=== PATIENT | male | born 1965 | race African-American/Black ===

== ENCOUNTER 2024-10-01 20:56 | Observation (INO) ==
--- NOTE | 2024-10-01 21:08 | DR.EXTPAIN ---
HPI Time seen Time Seen by Provider: 10/01/24 21:08 HPI Comment HPI Comment: Patient is poor historian but it sounds like he has had some left- sided upper extremity weakness. Per patient this started at 2 PM with a headache and then around 6 in the afternoon he started having weakness on the left upper extremity and had a fall. PMH PMH Past Medical History: PUD Past Surgical History: No Family History Family Medical History: Diabetes Mellitus Social History Do you use any recreational Drugs:: No ROS Review of Systems Constitutional: See HPI and Weakness Eyes: No Symptoms Reported ENTM: No Symptoms Reported Respiratoy: No Symptoms Reported Cardiovascular: No Symptoms Reported Gastrointestinal/Abdominal: No Symptoms Reported Genitourinary: No Symptoms Reported Neurological: See HPI Musculoskeletal: No Symptoms Reported Integumentary: No Symptoms Reported Hematologic/Lymphatic: No Symptoms Reported Endocrine: No Symptoms Reported Psychiatric: No Symptoms Reported All Other Systems: Reviewed and Negative PE Vital Signs Vitals: Vital Signs Temperature 98.0 F Pulse Rate [Left] 105 Pulse Rate [Left] 115 Pulse Rate 92 Pulse Rate 100 Pulse Rate 98 Pulse Rate 99 Pulse Rate 97 Pulse Rate 97 Pulse Rate 95 Pulse Rate 91 Pulse Rate 94 Pulse Rate 92 Pulse Rate 111 Pulse Rate 97 Respiratory Rate 19 Respiratory Rate 27 Respiratory Rate 26 Respiratory Rate 27 Respiratory Rate 22 Respiratory Rate 24 Respiratory Rate 24 Respiratory Rate 30 Respiratory Rate 26 Respiratory Rate 23 Blood Pressure [Right Arm] 201/97 Blood Pressure [Right Arm] 207/118 Blood Pressure 183/85 Blood Pressure 198/107 Blood Pressure 198/107 Blood Pressure 198/94 Blood Pressure 181/96 Blood Pressure 205/123 O2 Sat by Pulse Oximetry 99 O2 Sat by Pulse Oximetry 95 O2 Sat by Pulse Oximetry 96 O2 Sat by Pulse Oximetry 96 O2 Sat by Pulse Oximetry 97 O2 Sat by Pulse Oximetry 95 O2 Sat by Pulse Oximetry 97 O2 Sat by Pulse Oximetry 95 O2 Sat by Pulse Oximetry 96 O2 Sat by Pulse Oximetry 115 General Limitations: No Limitations General Appearance: Alert Head Head Exam: Normal Inspection Eyes Eye exam: Normal Appearance ENT ENT Exam: Normal Exam Neck Neck Exam: Normal Inspection Chest Chest Inspection: Normal Inspection Respiratory Respiratory Exam: Normal Lung Sounds Bilat Cardiovascular Cardiovascular Exam: Regular Rate and Normal Rhythm Abdominal Exam Abdominal Exam: Normal Inspection, Normal Bowel Sounds and Soft Extremities Extremities Exam: Normal Inspection Back Back Exam: Normal Inspection Neurological Neurological Exam: Alert, Oriented X3 and Motor Sensory Deficit Psychiatric Psychiatric Exam: Normal Affect and Normal Mood Skin Skin Exam: Warm, Dry, Intact and Normal Color COURSE Consultation Called: 21:25 Consultation Comments: At 21:25 - Spoke with Neuro Telemed service, Dr. Patrick, who had concerns for R temp area with stroke vs mass. Pt was having Simple Partial Seizures. He recommended 2 mg of Ativan and Keppra 2K to load with intention of 1 k maintenance bid. He also recommended MRI with and without contrast in the am, when available. BP recommended to keep between 160-180 Systolic. 23:35 - Discussed case with Dr. Menendez. He is agreeable to admit patient. [facility] Labs Reviewed 10/01/24 21:15 10/01/24 21:12 Laboratory: WBC 11.2 X10^3/uL (3.6-10.0) H 10/01/24 21:15 RBC 3.82 X10^6/uL (4.7-6.0) L 10/01/24 21:15 Hgb 11.9 g/dL (13.5-18.0) L 10/01/24 21:15 Hct 35.2 % (42.0-54.0) L 10/01/24 21:15 MCV 92.2 fL (80.0-100.0) 10/01/24 21:15 MCH 31.3 pg (27.0-34.0) 10/01/24 21:15 MCHC 33.9 g/dL (33.0-35.0) 10/01/24 21:15 RDW 13.5 % (11.6-16.5) 10/01/24 21:15 Plt Count 263 X10^3/uL (150.0-450.0) 10/01/24 21:15 MPV 8.8 fL (7.4-11.0) 10/01/24 21:15 Neut % (Auto) 78.7 % (42.0-75.0) H 10/01/24 21:15 Lymph % (Auto) 12.7 % (21.0-51.0) L 10/01/24 21:15 [place] % (Auto) 7.6 % (0.0-13.0) 10/01/24 21:15 Eos % (Auto) 0.7 % (0.9-2.9) L 10/01/24 21:15 Baso % (Auto) 0.3 % (0.2-1.0) 10/01/24 21:15 Neut # (Auto) 8.8 x10^3/uL (2.2-4.8) H 10/01/24 21:15 Lymph # (Auto) 1.4 X10^3/uL (1.3-2.9) 10/01/24 21:15 [place] # (Auto) 0.8 x10^3/uL (0.3-0.8) 10/01/24 21:15 Eos # (Auto) 0.1 x10^3/uL (0.0-0.2) 10/01/24 21:15 Baso # (Auto) 0.0 X10^3/uL (0.0-0.1) 10/01/24 21:15 Absolute Nucleated RBC 0.1 /100WBC 10/01/24 21:15 PT 14.2 SECONDS (11.8-14.3) 10/01/24 21:12 INR Target Range - 10/01/24 21:12 INR 1.12 (0.8-1.3) 10/01/24 21:12 APTT 27.7 SECONDS (22.9-36.5) 10/01/24 21:12 PTT Comment - 10/01/24 21:12 Fibrinogen 535 mg/dL (239-489) H 10/01/24 21:12 Sodium 140 mmol/L (136-145) 10/01/24 21:12 Corrected Sodium 141 mmol/L (136-145) 10/01/24 21:12 Potassium 3.8 mmol/L (3.5-5.1) 10/01/24 21:12 Chloride 105 mmol/L (98-107) 10/01/24 21:12 Carbon Dioxide 25.6 mmol/L (21-32) 10/01/24 21:12 BUN 13 mg/dL (7-18) 10/01/24 21:12 Creatinine 1.18 mg/dL (0.70-1.30) 10/01/24 21:12 Est GFR (MDRD) Af Amer > 60 (>60) 10/01/24 21:12 Est GFR (MDRD) Non-Af > 60 (>60) 10/01/24 21:12 Glucose 149 mg/dL (65-99) H 10/01/24 21:12 Calcium 8.8 mg/dL (8.5-10.1) 10/01/24 21:12 Corrected Calcium 9.4 mg/dL (8.5-10.1) 10/01/24 21:12 Total Bilirubin 0.40 mg/dL (0.2-1.0) 10/01/24 21:12 AST 18 Units/L (15-37) 10/01/24 21:12 ALT 15 Units/L (12-78) 10/01/24 21:12 Alkaline Phosphatase 127 Units/L (46-116) H 10/01/24 21:12 Creatine Kinase 106 Units/L (39-308) 10/01/24 21:12 Troponin I High Sens 11.8 ng/L (4.0-60.0) 10/01/24 21:12 Total Protein 8.9 g/dL (6.4-8.2) H 10/01/24 21:12 Albumin 3.3 g/dL (3.4-5.0) L 10/01/24 21:12 Globulin 5.6 g/dL (2.5-4.5) H 10/01/24 21:12 Albumin/Globulin Ratio 0.6 Ratio (1.1-2.1) L 10/01/24 21:12 Triglycerides 83 mg/dL (0-150) 10/01/24 21:12 Cholesterol 235 mg/dL (0-200) H 10/01/24 21:12 LDL Cholesterol, Calc 165 mg/dL (0-100) H 10/01/24 21:12 HDL Cholesterol 53 mg/dL (40-60) 10/01/24 21:12 Cholesterol/HDL Ratio 4.4 (0.0-5.0) 10/01/24 21:12 Blood Type B POSITIVE 10/01/24 21:12 Antibody Screen Negative 10/01/24 21:12 Opioid Opioid Risk Tool Age ([place] box if 16-45): No History of Preadolescent Sexual Abuse: No Total: 0 Total Score Risk Category: Low Risk Copyright: Pernell BILLS predicting aberrant behaviors Discharge Plan Diagnosis Discharge Problem: Hypertensive emergency, Brain lesion, Simple partial seizure Discharge Plan Patient Disposition: 09 ADMITTED INPATIENT Condition: Stable Prescriptions: No Action nitroglycerin 0.4 mg tablet, sublingual 0.4 mg sublingual Q5M PRN (Reason: chest pain. May repeat q 5' x 2 if needed.) Qty: 20 0RF Rx Instructions: do not exceed 3 doses per episode Health Concerns: Post Hospitalization: new medications and changes needed to prevent readmission or further decline. Pt educated and given instructions on all concerns. Plan of Treatment: Continue with present treatment and follow up plan. Pt is to keep follow up appointment as instructed and take medications as ordered. Orders to Discharge Patient Discharge Orders: Transfer (Routine); Ordered 10/01/24 Ordered By: Con Ruiz Follow ups/Referrals Follow ups/Referrals: ZACHERY MENENDEZ [Primary Care Provider] - 3 days Instructions Stand Alone Forms: Post Hospital Follow Up Care
[2024-10-01 21:25] LABS: HEMOGLOBIN 11.9 g/dL (13.5-18.0)
[2024-10-01 21:28] LABS: BASOPHILS % (AUTO) 0.3 % (0.2-1.0); EOSINOPHILS # (AUTO) 0.1 x10^3/uL (0.0-0.2); EOSINOPHILS % (AUTO) 0.7 % (0.9-2.9); HEMATOCRIT 35.2 % (42.0-54.0); LYMPHOCYTES # (AUTO) 1.4 X10^3/uL (1.3-2.9); LYMPHOCYTES % (AUTO) 12.7 % (21.0-51.0); MEAN CORPUSCULAR HEMOGLOBIN 31.3 pg (27.0-34.0); MEAN CORPUSCULAR HGB CONC 33.9 g/dL (33.0-35.0); MEAN CORPUSCULAR VOLUME 92.2 fL (80.0-100.0); MEAN PLATELET VOLUME 8.8 fL (7.4-11.0); MONOCYTES # (AUTO) 0.8 x10^3/uL (0.3-0.8); MONOCYTES % (AUTO) 7.6 % (0.0-13.0); NEUTROPHILS # (AUTO) 8.8 x10^3/uL (2.2-4.8); NEUTROPHILS % (AUTO) 78.7 % (42.0-75.0); PLATELET COUNT 263 X10^3/uL (150.0-450.0); RED BLOOD COUNT 3.82 X10^6/uL (4.7-6.0); RED CELL DISTRIBUTION WIDTH 13.5 % (11.6-16.5); WHITE BLOOD COUNT 11.2 X10^3/uL (3.6-10.0)
[2024-10-01] MEDS: ATIVAN INJ 2 MG VIAL IVP ONE (21:28)
[2024-10-01 21:31] LABS: INR 1.12 (0.8-1.3)
[2024-10-01] MEDS ORDERED: NS 100 ML IV 100 ML ONE (21:39)
[2024-10-01 21:40] LABS: ALANINE AMINOTRANSFERASE 15 Units/L (12-78); ALBUMIN 3.3 g/dL (3.4-5.0); ALKALINE PHOSPHATASE 127 Units/L (46-116); ASPARTATE AMINO TRANSFERASE 18 Units/L (15-37); BLOOD UREA NITROGEN 13 mg/dL (7-18); CALCIUM 8.8 mg/dL (8.5-10.1); CARBON DIOXIDE 25.6 mmol/L (21-32); CHLORIDE 105 mmol/L (98-107); CHOL/HDL RATIO 4.4 (0.0-5.0); CHOLESTEROL 235 mg/dL (0-200); COR CA(FOR HYPOALB) 9.4 mg/dL (8.5-10.1); COR NA(FOR HYPERGLY) 141 mmol/L (136-145); CREATINE KINASE 106 Units/L (39-308); CREATININE 1.18 mg/dL (0.70-1.30); GLUCOSE 149 mg/dL (65-99); HDL CHOLESTEROL 53 mg/dL (40-60); POTASSIUM 3.8 mmol/L (3.5-5.1); SODIUM 140 mmol/L (136-145); TOTAL PROTEIN 8.9 g/dL (6.4-8.2); TRIGLYCERIDES 83 mg/dL (0-150); eGFR NON BLACK RACES > 60 (>60)
--- NOTE | 2024-10-01 21:41 | TELESTROKE ---
[facility] Consult Date of Consult Date of Exam: 10/01/24 Time of Arrival to the ED: 20:56 Allergies Allergies Allergy/AdvReac Type Severity Reaction Status Date / Time No Known Drug Allergies Allergy Verified 05/24/19 09:52 History of Present Illness History of Present Illness: [facility] Patient Name:Joshua Moreno Jr. 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 The patient is not a candidate for thrombolytics as LKW >4.5 hours. The patient is seizing currently, simple partial seizures. 2 mg of Ativan recommended and 2 grams of Keppra load placed now. Continue with 1 gram IV Keppra q12 hours as well. If no cessation of seizures, can add Valproic Acid 1000 mg IV load and then 500 mg IV q8 hours to help. Patient will need MRI brain with/without contrast. Not sure this is a stroke on CT scan so at this point, no antiplatelet or anticoagulation. Can bring systolic bp down to 160-180 with diastolic less than 100. If MRI positive for stroke, recommend stroke evaluation. Thank you for the consultation. Our recommendations are outlined below. Recommendations: Stroke/Telemetry Floor Neuro Checks Bedside Swallow Eval DVT Prophylaxis IV Fluids, Normal Saline Head of Bed 30 Degrees Euglycemia and Avoid Hyperthermia (PRN Acetaminophen) Sign Out: Discussed with Emergency Department Provider Advanced Imaging: Advanced Imaging Deferred because: Stroke not suspected with clinical presentation and exam Metrics: Last Known Well: 10/01/2024 14:00:00 Dispatch Time: 10/01/2024 21:02:54 Arrival Time: 10/01/2024 20:56:00 Initial Response Time: 10/01/2024 21:06:05Symptoms: Jerking and weakness. Initial patient interaction: 10/01/2024 21:09:03 NIHSS Assessment Completed: 10/01/2024 21:14:33Patient is not a candidate for Thrombolytic. Thrombolytic Medical Decision: 10/01/2024 21:14:35Patient was not deemed candidate for Thrombolytic because of following reasons: LKW outside 4.5 hr window. . I personally Reviewed the CT Head and it Showed areas of edema in the right temporal region. Primary Provider Notified of Diagnostic Impression and Management Plan on: 10/01/2024 21:38:23 History of Present Illness:Patient is a 59 year old Male. Patient was brought by EMS for symptoms of Jerking and weakness. This is a 59 year old male who states that about 2 PM, he started feeling odd and was having a headache that is not really improving. The patient states that he then noticed he was getting a little weak on the left side and an hour prior to arrival, the patient had a fall in the bathroom with weakness on the left side. Since that time, he has had rhythmic jerking of the left side. Asked to see him for further evaluation of his symptoms. Past Medical History: Hypertension There is no history of Seizures Medications: No Anticoagulant use No Antiplatelet use Reviewed EMR for current medications Allergies: Reviewed Social History: Drug Use: No Family History: There is no family history of premature cerebrovascular disease pertinent to this consultation ROS : 14 Points Review of Systems was performed and was negative except mentioned in HPI. Past Surgical History: There Is No Surgical History Contributory To Todays Visit Examination: BP(150/73),Pulse(76), 1A: Level of Consciousness - Alert; keenly responsive+ 0 1B: Ask Month and Age - Both Questions Right+ 0 1C: Blink Eyes & Squeeze Hands - Performs Both Tasks+ 0 2: Test Horizontal Extraocular Movements - Partial Gaze Palsy: Corrects with Oculocephalic Reflex+ 1 3: Test Visual Martinez - Partial Hemianopia+ 1 4: Test Facial Palsy (Use Grimace if Obtunded) - Normal symmetry+ 0 5A: Test Left Arm Motor Drift - Drift, but doesn't hit bed+ 1 5B: Test Right Arm Motor Drift - No Drift for 10 Seconds+ 0 6A: Test Left Leg Motor Drift - Drift, but doesn't hit bed+ 1 6B: Test Right Leg Motor Drift - No Drift for 5 Seconds+ 0 7: Test Limb Ataxia (FNF/Heel-Arellano) - No Ataxia+ 0 8: Test Sensation - Normal; No sensory loss+ 0 9: Test Language/Aphasia - Normal; No aphasia+ 0 10: Test Dysarthria - Normal+ 0 11: Test Extinction/Inattention - No abnormality+ 0 NIHSS Score:4 NIHSS Free Text :Rhythmic jerking of the left face/arm with preservation of mentation. Pre-Morbid Modified Harmon Scale:0 Points = No symptoms at all Spoke with :Con Ruiz MD (ED Attending) This consult was conducted in real time using interactive audio and video technology. Patient was informed of the technology being used for this visit and agreed to proceed. Patient located in hospital and provider located at home/office setting. Patient is being evaluated for possible acute neurologic impairment and high probability of imminent or life-threatening deterioration. I spent total of 40 minutes providing care to this patient, including time for face to face visit via telemedicine, review of medical records, imaging studies and discussion of findings with providers, the patient and/or family. Dr Diego Patrick [facility] For Inpatient follow-up with [facility] physician please call [facility] at . As we are not an outpatient service for any post hospital discharge needs please contact the hospital for assistance. If you have any questions for the [facility] physicians or need to reconsult for clinical or diagnostic changes please contact us via [facility] at . Medical Decision Making 10/01/24 21:15 10/01/24 21:12
--- NOTE | 2024-10-01 21:45 | EKG ---
Test Reason : weakness, headache, elevated bp Blood Pressure : */* mmHG Vent. Rate : 92 BPM Atrial Rate : 92 BPM P-R Int : 148 ms QRS Dur : 96 ms QT Int : 366 ms P-R-T Axes : 75 50 -76 degrees QTc Int : 452 ms Normal sinus rhythm LVH with repolarization abnormality Abnormal ECG No previous ECGs available Confirmed by Richard Marie MD ([id number]) on 10/02/2024 7:27:01 AM Referred By: Confirmed By: Richard Marie MD
[2024-10-01] MEDS: KEPPRA IV ONE (21:52)
[2024-10-01] MEDS: NS IV ONE (21:52)
--- NOTE | 2024-10-01 21:58 | CT ---
PROCEDURE: CT Head without IV Contrast. HISTORY: stroke symptoms; . TECHNIQUE: Axial images were performed through the head without the administration of IV contrast wit h multiplanar reformations . Dose reduction techniques including Automated Exposure Control (AEC) and adjustment of mA and kV were utilized . COMPARISON: None. TECHNICAL QUALITY: Satisfactory. FINDINGS: Brain shows no mass, hemorrhage, or acute stroke. Mild periventricular old micro ischemic changes. Mild diffuse cerebral and cerebellar atrophy. Ence phalomalacia involving right parietal lobe from previous stroke. Ventricles are normal size for patient's age. No acute skull or scalp abnormality. Visualized sinuses and mastoids are clear. IMPRESSION: 1. No acute intracranial abnormality. 2. Senescent changes. 3. 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 THIS IS AN ELECTRONICALLY VERIFIED FINAL REPORT 10/01/2024 9:54 PM - Electronically signed by Felix Murphy MD
--- NOTE | 2024-10-01 23:20 | CT ---
PROCEDURE: CT Cervical Spine without IV Contrast. HISTORY: FALL, HEADACHE; HTN, IL, PUD SX: STENTS X 3 . TECHNIQUE: Axial images were performed through the cervical spine without the administration of IV co ntrast with multiplanar reformations . Dose reduction techniques including Automated Exposure Control (AEC) and adjustment of mA and kV were utilized. COMPARISON: None. TECHNICAL QUALITY: Satisfactory. FINDINGS: No acute fracture or displacement. Disc space narrowing and spondylosis C5-C6. Facets show normal alignment with scattered mild to moderate arthrosis. Spinous processes are unrema rkable. Normal odontoid. Mild atherosclerosis carotid bifurcations. IMPRESSION: 1. No acute bony abnormality. 2. Cervical spondyloarthropathy. THIS IS AN ELECTRONICALLY VERIFIED FINAL REPORT 10/01/2024 11:16 PM - Electronically signed by Felix Murphy MD
[2024-10-01 23:32] LABS: BILIRUBIN,URINE NEGATIVE (NEGATIVE); BLOOD/HEMOGLOBIN,URINE 1+ (NEGATIVE); GLUCOSE, URINE NEGATIVE (NEGATIVE); KETONES,URINE NEGATIVE (NEGATIVE); LEUKOCYTE ESTERASE ,URINE NEGATIVE (NEGATIVE); NITRITES,URINE NEGATIVE (NEGATIVE); PROTEIN,URINE 3+ (NEGATIVE); UROBILINOGEN,URINE NORMAL (NORMAL)
[2024-10-01] MEDS: APRESOLINE INJ 20 MG VIAL IVP ONE (23:34)
[2024-10-01 23:57] LABS: COLOR,URINE YELLOW (YELLOW)
[2024-10-01 23:58] LABS: APPEARANCE,URINE HAZY (CLEAR); BACTERIA,URINE NEGATIVE /HPF (NEGATIVE); SQUAMOUS EPITHELIAL CELL,UR RARE /HPF (NEGATIVE)
[2024-10-02] MEDS ORDERED: ATIVAN INJ 2 MG VIAL IVP PRN (00:38)
[2024-10-02] MEDS ORDERED: CONSULT PHARMACY - POTASSIUM & MAGNESIUM XX SCH ×2 (00:38→07:00)
[2024-10-02] MEDS ORDERED: OFIRMEV IV 1000 MG VIAL 1,000 MG/100 ML VIAL IV PRN (00:38)
[2024-10-02] MEDS: APRESOLINE INJ 20 MG VIAL ONE (00:46)
[2024-10-02] MEDS: ATIVAN INJ 2 MG VIAL ONE (00:46)
[2024-10-02] MEDS: NS 1,000 ML IV 1,000 ML IV SCH (01:13)
[2024-10-02] MEDS: K-RIDER 10 MEQ/100 ML WATER 10 MEQ/100 ML BAG IV SCH ×2 (01:16→07:25)
[2024-10-02 02:24] VITALS: BMI 27.3
[2024-10-02 06:04] LABS: BASOPHILS % (AUTO) 0.4 % (0.2-1.0); EOSINOPHILS # (AUTO) 0.1 x10^3/uL (0.0-0.2); EOSINOPHILS % (AUTO) 0.7 % (0.9-2.9); HEMOGLOBIN 11.4 g/dL (13.5-18.0); LYMPHOCYTES # (AUTO) 1.7 X10^3/uL (1.3-2.9); LYMPHOCYTES % (AUTO) 17.2 % (21.0-51.0); MEAN CORPUSCULAR HEMOGLOBIN 31.4 pg (27.0-34.0); MEAN CORPUSCULAR HGB CONC 34.5 g/dL (33.0-35.0); MEAN PLATELET VOLUME 8.8 fL (7.4-11.0); MONOCYTES # (AUTO) 0.9 x10^3/uL (0.3-0.8); MONOCYTES % (AUTO) 8.6 % (0.0-13.0); NEUTROPHILS # (AUTO) 7.3 x10^3/uL (2.2-4.8); NEUTROPHILS % (AUTO) 73.1 % (42.0-75.0); PLATELET COUNT 259 X10^3/uL (150.0-450.0); RED BLOOD COUNT 3.63 X10^6/uL (4.7-6.0); RED CELL DISTRIBUTION WIDTH 13.4 % (11.6-16.5)
[2024-10-02 06:11] LABS: ALANINE AMINOTRANSFERASE 10 Units/L (12-78); ALBUMIN 2.7 g/dL (3.4-5.0); ALKALINE PHOSPHATASE 114 Units/L (46-116); ASPARTATE AMINO TRANSFERASE 14 Units/L (15-37); BLOOD UREA NITROGEN 11 mg/dL (7-18); CALCIUM 8.5 mg/dL (8.5-10.1); CARBON DIOXIDE 24.9 mmol/L (21-32); CHLORIDE 106 mmol/L (98-107); COR CA(FOR HYPOALB) 9.5 mg/dL (8.5-10.1); CREATININE 1.07 mg/dL (0.70-1.30); GLUCOSE 100 mg/dL (65-99); MAGNESIUM 1.6 mg/dL (2.0-2.9); POTASSIUM 3.3 mmol/L (3.5-5.1); SODIUM 140 mmol/L (136-145); TOTAL PROTEIN 7.6 g/dL (6.4-8.2); eGFR NON BLACK RACES > 60 (>60)
--- NOTE | 2024-10-02 07:16 | RAD ---
EXAM: Portable chest HISTORY: Weakness, headache, fall COMPARISON: 07/07/2022 FINDINGS: Heart is enlarged. No congestive heart failure is noted. Johanna are normal. Lung [place] are clear. Bony thorax is unremarkable. IMPRESSION: Cardiomegaly without congestive heart failure Lungs clear THIS IS AN ELECTRONICALLY VERIFIED FINAL REPORT 10/02/2024 7:13 AM - Electronically signed by Toni Mallory MD
[2024-10-02] MEDS: MAGNESIUM SULFATE 1 GRAM/100 mL PREMIX 1 G/100 ML BAG IV SCH (07:25)
[2024-10-02] MEDS: LOVENOX INJ 80 MG SYR SC SCH (08:35)
--- NOTE | 2024-10-02 11:33 | MRI ---
EXAMINATION: BRAIN W&W/O CON HISTORY: FALL/ HEADACHE PT STATES HE PASSED OUT; . COMPARISON STUDY: CT brain 10/01/2024 TECHNIQUE: Sagittal T1, axial T1, axial T2, axial proton density, axial diffusion weighted images and coronal FL AIR images were obtained through the brain. Pre and postcontrast MRI brain was performed FINDINGS: There is no abnormal low or high signal to suggest acute intracranial hemorrhage or acute stroke. Ve ntricles and sulci demonstrate atrophy and deep white matter ischemic changes. There is an old infar ct in the right parietal lobe with encephalomalacia.. Diaz-white matter differentiation is maintaine d throughout. There are no intra-axial or extra-axial collections noted. There are normal flow void s within the middle cerebral arteries as well as the basilar artery. Globes and retro-orbital structures are unremarkable. The sinuses are clear. Cerebellopontine angle s are normal. On the sagittal images cervicomedullary junction is normal. Normal bone marrow signal is seen within the clivus and cervical spine. Pituitary is unremarkable. Normal midline structures are present. There is no abnormal signal on the FLAIR and diffusion weighted sequences.No abnormal signal on the g radient echo images. No abnormal enhancement or ring enhancing lesions noted.. IMPRESSION: No acute intracranial process. Atrophy and deep white matter ischemic changes. Encephalomalacia in the right parietal region from p revious infarct. THIS IS AN ELECTRONICALLY VERIFIED FINAL REPORT 10/02/2024 11:23 AM - Electronically signed by Nazario Elder MD
[2024-10-02] MEDS: COREG TAB 6.25 MG PO SCH (12:07)
[2024-10-02] MEDS: MICARDIS PO SCH (12:07)
[2024-10-02] MEDS: MULTIHANCE INJ VIAL ONE (15:56)
[2024-10-02] MEDS: GLUCOPHAGE XR 24-HR PO SCH (21:05)
[2024-10-03 05:55] LABS: BASOPHILS # (AUTO) 0.1 X10^3/uL (0.0-0.1); BASOPHILS % (AUTO) 0.5 % (0.2-1.0); EOSINOPHILS # (AUTO) 0.1 x10^3/uL (0.0-0.2); EOSINOPHILS % (AUTO) 0.7 % (0.9-2.9); HEMATOCRIT 35.8 % (42.0-54.0); HEMOGLOBIN 12.4 g/dL (13.5-18.0); LYMPHOCYTES # (AUTO) 1.2 X10^3/uL (1.3-2.9); LYMPHOCYTES % (AUTO) 9.4 % (21.0-51.0); MEAN CORPUSCULAR HEMOGLOBIN 31.7 pg (27.0-34.0); MEAN CORPUSCULAR HGB CONC 34.7 g/dL (33.0-35.0); MEAN CORPUSCULAR VOLUME 91.5 fL (80.0-100.0); MEAN PLATELET VOLUME 8.6 fL (7.4-11.0); MONOCYTES # (AUTO) 0.8 x10^3/uL (0.3-0.8); MONOCYTES % (AUTO) 6.2 % (0.0-13.0); NEUTROPHILS # (AUTO) 10.8 x10^3/uL (2.2-4.8); NEUTROPHILS % (AUTO) 83.2 % (42.0-75.0); PLATELET COUNT 269 X10^3/uL (150.0-450.0); RED BLOOD COUNT 3.91 X10^6/uL (4.7-6.0); RED CELL DISTRIBUTION WIDTH 13.6 % (11.6-16.5); WHITE BLOOD COUNT 12.9 X10^3/uL (3.6-10.0)
[2024-10-03 06:31] LABS: ALANINE AMINOTRANSFERASE 13 Units/L (12-78); ALBUMIN 2.9 g/dL (3.4-5.0); ALKALINE PHOSPHATASE 110 Units/L (46-116); ASPARTATE AMINO TRANSFERASE 22 Units/L (15-37); BLOOD UREA NITROGEN 12 mg/dL (7-18); CALCIUM 8.9 mg/dL (8.5-10.1); CARBON DIOXIDE 22.9 mmol/L (21-32); CHLORIDE 108 mmol/L (98-107); COR CA(FOR HYPOALB) 9.8 mg/dL (8.5-10.1); CREATININE 1.06 mg/dL (0.70-1.30); GLUCOSE 90 mg/dL (65-99); POTASSIUM 3.8 mmol/L (3.5-5.1); SODIUM 143 mmol/L (136-145); eGFR NON BLACK RACES > 60 (>60)
--- NOTE | 2024-10-03 07:27 | VAS ---
EXAMINATION:CAROTID USHISTORY:HTN ENERGY, BRAIN LESION, PASSING OUT; ; BSA=2.02BSAType=OCCIDENTAL.COMPARISON STUDY:None.TECHNIQUE:Diaz scale imaging, pulsed wave doppler and color doppler imaging of the bilateral carotid arteries was performed.FINDINGS:PSV (cm/sec) PDV (cm/sec)RCCA 75 11RICA 67 22RECA 90ICA/CCA Ratio: 1.9Vertebral Artery: Antegrade flowLCCA 92 13LICA 85 27LECA 59ICA/CCA Ratio: 1.3Vertebral Artery: Antegrade flowIMPRESSION:Scattered arterial vascular plaque. Normal arterial velocities demonstrated within the extracranial carotid and vertebral arteries. However, duplex Doppler arterial tracings of the internal carotid arteries demonstrates spectral broadening/turbulent blood flow potentially representing occult stenoses. There are resistive arterial waveforms in the left vertebral artery. Recommend further evaluation with CTA of the neck.Measurements were made utilizing the Society of Radiologists in Ultrasound consensus criteria, extrapolating data obtained from angiography measurements made by the NASCET method as a reference standard.THIS IS AN ELECTRONICALLY VERIFIED FINAL [id number]/03/2024 7:23 AM - Electronically signed by Sonia Hall MD
[2024-10-03 08:44] VITALS: RESP 20; O2SAT 98
[2024-10-03] MEDS ORDERED: NORVASC TAB 10 MG PO SCH (09:00)
[2024-10-03] MEDS: ASPIRIN EC 81 MG PO SCH (09:45)
[2024-10-03] MEDS: PLAVIX PO SCH (09:45)
[2024-10-03] MEDS: COREG TAB 12.5 MG PO NR (09:45)
[2024-10-03] MEDS ORDERED: COREG TAB 25 MG PO SCH ×2 (10:00→21:00)
--- NOTE | 2024-10-03 13:14 | CT ---
EXAMINATION:CAROTID CTAHISTORY:ABNORMAL CAROTID ULTRASOUND;COMPARISON:None.TECHNIQUE:Thi n contiguous axial CT images of the neck following intravenous contrast in order to perform a CT angiogram. Images are reviewed in the axial imaging plane with post processing thick slab MIP/3D volume images at a workstation. Images are analyzed using NASCET criteria.The above CT scan was done with automated exposure control and the mA and kV was adjusted to obtain quality images according to patient size.FINDINGS:There is enhancement of the common carotid, internal and external carotid, and vertebral arteries bilaterally. Calcified vascular plaque along the carotid bifurcations, proximal internal carotid arteries bilaterally without evidence of a hemodynamically significant stenosis. The right vertebral artery is dominant.Multilevel cervical spondylosis.IMPRESSION:Scattered calcified vascular plaque. No evidence of a hemodynamically significant arterial stenosis.THIS IS AN ELECTRONICALLY VERIFIED FINAL [id number]/03/2024 1:11 PM - Electronically signed by Sonia Hall MD
[2024-10-03 14:12] VITALS: BP 141/73; PULSE 90; TEMP 98.1
== END 2024-10-03 12:55 | disposition home or self-care (01) ==
LOC: MED/SURG 20:56 → ER 20:56 → MED/SURG 10-02 00:47
PROVIDERS: ADMIT Obstetrics & Gynecology Obstetrics; ATTEND Obstetrics & Gynecology Obstetrics
DX: Z59.86 Financial insecurity; R53.1 Weakness; R94.31 Abnormal electrocardiogram [ECG] [EKG]; R51.9 Headache, unspecified; I10 Essential (primary) hypertension; I16.0 Hypertensive urgency; I25.10 Atherosclerotic heart disease of native coronary artery without angina pectoris; I63.89 Other cerebral infarction; W18.39XA Other fall on same level, initial encounter; G93.6 Cerebral edema; E11.65 Type 2 diabetes mellitus with hyperglycemia; R26.89 Other abnormalities of gait and mobility